=== PATIENT | female | born 1990 | race Caucasian/White ===

== ENCOUNTER → 2020-05-06 | Outpatient (CLI) | payer BC ==
--- NOTE | 2020-05-06 09:00 | Diagnostic Imaging Report ---
PROCEDURE: Pelvic complete, transabdominal and transvaginal sonogram. Limited pelvic doppler. TECHNIQUE: Multiple real-time grayscale images were obtained of the pelvis in various projections transabdominally and transvaginally. Limited pelvic duplex images were obtained. HISTORY: Infertility COMPARISON: None available. FINDINGS: The uterus is anteverted and is normal in size. It measures 6.2 x 3.5 x 4.3 cm. The endometrial stripe measures 6 mm in width. No endometrial abnormality or myometrial mass is seen. Both ovaries are normal. The right ovary measures 4.3 x 3.0 x 2.2 cm and the left ovary measures 2.1 x 1.5 x 2.4 cm. Duplex images reveal normal arterial inflow to both ovaries. There is a physiologic simple cyst in the right ovary measuring 2.5 x 2.4 cm. There is a physiologic simple cyst in left ovary measuring 9 mm. There is no free pelvic fluid. IMPRESSION: 1. Normal uterus and ovaries. Dictated by: Dictated on workstation # [id number]
== END ==
LOC: RAD 07:56
PROVIDERS: ATTEND Obstetrics & Gynecology Reproductive Endocrinology
DX: N97.9 Female infertility, unspecified (principal)
CPT/HCPCS: 76830; 76856